=== PATIENT | male | born 1960 | race Caucasian/White ===

== ENCOUNTER 2018-10-30 09:05 | Day surgery (SDC) | payer OTHER ==
[~2018-10-30 09:05] MED LIST: Lactated Ringers 1,000 ML IV SCH; Sodium Chloride 0.9% 10 ML SDV IV PRN; Sodium Chloride 0.9% 10 ML Syringe FLUSH PRN; Sodium Chloride 0.9% 2.5 ML Syringe FLUSH PRN
[2018-10-30] MEDS ORDERED: Propofol 200 MG/20 ML SDV ONE (09:24)
[2018-10-30] MEDS ORDERED: fentaNYL 100 MCG/2 ML SDV ONE (09:24)
[2018-10-30] MEDS ORDERED: Lidocaine 2% 5 ML SDV ONE (09:24)
--- NOTE | 2018-10-30 10:26 | PCM.PREANE ---
Preanesthetic Assessment - Anesthesia/Transfusion/Family Hx Anesthesia History: Prior Anesthesia Without Reaction Family History of Anesthesia Reaction: No Transfusion History: No Prior Transfusion(s) - Review of Systems General: No Symptoms Pulmonary: Other (has LYNDA, non compliant because of nasal stuffiness/obstruction ) Cardiovascular: No Symptoms Gastrointestinal: No Symptoms Neurological: No Symptoms Other: Reports: None - Physical Assessment NPO Status Date: 10/29/18 O2 Sat by Pulse Oximetry: 94 Respiratory Rate: 14 Vital Signs: Last Vital Signs Temp 97.7 F 10/30/18 09:35 Pulse 65 10/30/18 09:35 Resp 14 10/30/18 09:35 BP 121/70 10/30/18 09:35 Pulse Ox 94 L 10/30/18 09:35 Height: 6 ft Weight: 131.542 kg ASA Class: 3 Mental Status: Alert & Oriented x3 Airway Class: Mallampati = 2 Dentition: Reports: Normal Dentition ROM/Head Extension: Full Lungs: Clear to Auscultation, Normal Respiratory Effort Cardiovascular: Regular Rate, Regular Rhythm - Allergies Allergies/Adverse Reactions: Allergies Allergy/AdvReac Type Severity Reaction Status Date / Time No Known Allergies Allergy Verified 10/24/18 09:03 - Blood Blood Available: No - Anesthesia Plan Pre-Op Medication Ordered: None - Acknowledgements Anesthesia Type Planned: General Anesthesia Pt an Appropriate Candidate for the Planned Anesthesia: Yes Alternatives and Risks of Anesthesia Discussed w Pt/Guardian: Yes Pt/Guardian Understands and Agrees with Anesthesia Plan: Yes Additional Comments: PMH: htn, LYNDA, BPH, nasal obstruction PLAN: tiva, extended observation in PACU PreAnesthesia Questionnaire HEENT History: Reports: Other (See Below) Other HEENT History: wears glasses Cardiovascular History: Reports: Hypertension Respiratory History: Reports: Sleep Apnea Other Respiratory History: uses CPAP Gastrointestinal History: Reports: GERD Genitourinary History: Reports: BPH Musculoskeletal History: Reports: Fracture Neurological History: Reports: None Psychiatric History: Reports: Anxiety, Depression Endocrine/Metabolic History: Reports: Obesity/BMI 30+ Hematologic History: Reports: None Immunologic History: Reports: None Oncologic (Cancer) History: Reports: None Dermatologic History: Reports: None - Past Surgical History Head Surgeries/Procedures: Reports: None HEENT Surgical History: Reports: None Cardiovascular Surgical History: Reports: None Respiratory Surgical History: Reports: None GI Surgical History: Reports: Hernia, Inguinal Male Surgical History: Reports: None Endocrine Surgical History: Reports: None Neurological Surgical History: Reports: None Musculoskeletal Surgical History: Reports: Other (See Below) Other Musculoskeletal Surgeries/Procedures:: surgical repair of fx elbow Oncologic Surgical History: Reports: None Dermatological Surgical History: Reports: None - SUBSTANCE USE Smoking Status *Q: Former Smoker Recreational Drug Use History: No - HOME MEDS Home Medications: Home Meds Losartan [Cozaar] 50 mg PO DAILY 10/18/14 [History] buPROPion [buPROPion XL] 150 mg PO DAILY 10/18/14 [History] ALPRAZolam [Alprazolam] 0.5 - 1 tab PO TID PRN 10/24/18 [History] Finasteride 5 mg PO DAILY 10/24/18 [History] Meloxicam 1 tab PO DAILY 10/24/18 [History] Nicotine Polacrilex [Nicorette] 1 piece gum CHEW ASDIRECTED PRN 10/24/18 [ History] Omeprazole 40 mg PO DAILY 10/24/18 [History] Tamsulosin HCl 0.4 mg PO DAILY 10/24/18 [History] - CURRENT (IN HOUSE) MEDS Current Meds: Current Medications Lactated Ringer's (Ringers, Lactated) 1,000 mls @ 125 mls/hr IV ASDIRECTED RICARDA Last Admin: 10/30/18 09:55 Dose: 125 mls/hr Sodium Chloride (Saline Flush) 10 ml FLUSH ASDIRECTED PRN PRN Reason: Keep Vein Open Sodium Chloride (Saline Flush) 2.5 ml FLUSH ASDIRECTED PRN PRN Reason: Keep Vein Open Sodium Chloride (Saline Flush) 10 ml FLUSH ASDIRECTED PRN PRN Reason: Keep Vein Open Sodium Chloride (Saline Flush) 2.5 ml FLUSH ASDIRECTED PRN PRN Reason: Keep Vein Open Sodium Chloride (Normal Saline) 10 ml IV ASDIRECTED PRN PRN Reason: IV Use Discontinued Medications Fentanyl (Sublimaze) Confirm Administered Dose 100 mcg .ROUTE .STK-MED ONE Stop: 10/30/18 09:25 Lidocaine (Xylocaine-Mpf 2%) Confirm Administered Dose 5 ml .ROUTE .STK-MED ONE Stop: 10/30/18 09:25 Propofol (Diprivan 20 Ml) Confirm Administered Dose 400 mg .ROUTE .STFOLUP-MED ONE Stop: 10/30/18 09:25
--- NOTE | 2018-10-30 10:48 | PCM.OPNOTE ---
- General Post-Op/Procedure Note Date of Surgery/Procedure: 10/30/18 Operative Procedure(s): Colonoscopy Findings: Diverticulosis, rectal polyp Pre Op Diagnosis: Colonoscopy Post-Op Diagnosis: diverticuluosis, rectal polyp Anesthesia Technique: MICHAEL Primary Surgeon: Belkys Felipe Condition: Good
[2018-10-30 11:17] VITALS: BP 102/68
--- NOTE | 2018-10-30 12:30 | OR ---
SURGEON: BELKYS FELIPE MD DATE OF PROCEDURE: 10/30/2018 PREOPERATIVE DIAGNOSIS: Screening colonoscopy. POSTOPERATIVE DIAGNOSES: 1. Diverticulosis. 2. Rectal polyp. 3. Grade 4 hemorrhoid. PROCEDURE PERFORMED: Screening colonoscopy with biopsy. PRIMARY SURGEON: Belkys Felipe MD. ANESTHESIA: MAC. INSTRUMENT USED: Olympus colonoscope. EXTENT OF EXAM: To the cecum. PREPARATION: Good. LIMITATIONS: None. INDICATION FOR EXAMINATION: The patient is a 58-year-old male who presents for screening colonoscopy. I explained the procedure, expected perioperative course, and risks including bleeding, infection, or damage to surrounding structures including perforation. The patient verbalized understanding and wishes to proceed. PROCEDURE IN DETAIL: The patient was brought into the endoscopy suite and placed in a left lateral decubitus position. A time-out was completed verifying the patient's name, age, date of , allergies, and procedure to be performed. Monitored anesthesia care was induced and continuous oxygen was provided via nasal cannula throughout the procedure. After adequate sedation was achieved, a digital rectal exam was performed. The patient was found to have a large grade 4 hemorrhoid in the left lateral position. A well lubricated colonoscope was inserted into the rectum and advanced under direct visualization to the level of the cecum. The cecum was identified by both visual and anatomic landmarks. A photograph was taken of the cecal cap as well with the scope retroflexed within the cecum. The scope was then fully withdrawn while examining the color, texture, anatomy, and integrity of the mucosa from the cecum to the anal canal. The patient was found to have diverticulosis throughout the sigmoid colon. In the proximal rectum, there was a small 2 to 3 mm polyp. This was removed using a cold biopsy forceps and sent to Pathology, labeled as rectal polyp. The scope was then retroflexed within the rectum to allow visualization of the anal canal opening. This grossly appeared normal and a photograph was taken. Scope was straightened out and fully withdrawn. The cecum to anus time was 7 minutes. The patient tolerated the procedure well and was taken to PACU in stable condition. ENDOSCOPIC DIAGNOSES: 1. Diverticulosis. 2. Rectal polyp. 3. Grade 4 hemorrhoid. RECOMMENDATIONS: Follow up in clinic in 2 weeks. JOSHUA FALCON /[id number]
== END 2018-10-30 12:00 | disposition home or self-care (01) ==
LOC: MW.SDS 09:05
PROVIDERS: ATTEND Surgery
DX: Z12.11 Encounter for screening for malignant neoplasm of colon (principal); K57.30 Diverticulosis of large intestine without perforation or abscess without bleeding; K62.1 Rectal polyp; K64.3 Fourth degree hemorrhoids; F41.8 Other specified anxiety disorders; I10 Essential (primary) hypertension; G47.33 Obstructive sleep apnea (adult) (pediatric); N40.0 Benign prostatic hyperplasia without lower urinary tract symptoms; E66.9 Obesity, unspecified; Z68.41 Body mass index [BMI] 40.0-44.9, adult; Z87.891 Personal history of nicotine dependence; Z79.899 Other long term (current) drug therapy
CPT/HCPCS: 45380; 88305; J2001; J2704; J3010; J7120

== ENCOUNTER 2019-03-27 17:02 | Emergency (ER) | payer OTHER ==
[2019-03-27 17:14] VITALS: BP 150/98; PULSE 103
--- NOTE | 2019-03-27 17:21 | EDM.PDOC ---
ED HPI GENERAL MEDICAL PROBLEM - General Chief Complaint: Genitourinary Problem Stated Complaint: PROSTATE Time Seen by Provider: 03/27/19 17:21 Source of Information: Reports: Patient History Limitations: Reports: No Limitations - History of Present Illness INITIAL COMMENTS - FREE TEXT/NARRATIVE: HISTORY AND PHYSICAL: History of present illness: Patient is a 58-year-old male presents to the ED with complaint of dysuria and frequent urination. Patient has a history of BPH, sees Dr. Cortez. He states he has been having frequent urination for the past few weeks but has been worse in the past 2 days. He states he has some burning with urination and some suprapubic abdominal pain. He denies fevers, chills, nausea, vomiting, back pain , hematuria. Review of systems: As per history of present illness and below otherwise all systems reviewed and negative. Past medical history: As per history of present illness and as reviewed below otherwise noncontributory. Surgical history: As per history of present illness and as reviewed below otherwise noncontributory. Social history: No reported history of drug or alcohol abuse. Family history: As per history of present illness and as reviewed below otherwise noncontributory. Physical exam: General: Patient sitting comfortably in no acute distress and nontoxic appearing HEENT: Atraumatic, normocephalic, pupils reactive, negative for conjunctival pallor or scleral icterus, mucous membranes moist, throat clear, neck supple, nontender, trachea midline. No meningeal signs. Lungs: Clear to auscultation, breath sounds equal bilaterally, chest nontender. Heart: S1S2, regular, negative for clicks, rubs, or overt murmur. Abdomen: Soft, nondistended, nontender. Negative for masses or hepatosplenomegaly. Negative for costovertebral tenderness. No rigidity, rebound , guarding. Pelvis: Stable nontender. Genitourinary: declined prostate exam Rectal: Deferred. Extremities: Atraumatic, negative for cords or calf pain. Neurovascular unremarkable. Neuro: Awake, alert, oriented. Cranial nerves II through XII unremarkable. Cerebellum unremarkable. Motor and sensory unremarkable throughout. Exam nonfocal. Notes: Diagnostics: [employer]: [] Prescriptions: cipro Impression: Dysuria, prostatitis Plan: Take antibiotic as instructed Follow up with urology Return to ED as needed as discussed Definitive disposition and diagnosis as appropriate pending reevaluation and review of above. Pelvic Pain Score (Numeric/FACES): 8 - Related Data Allergies Allergy/AdvReac Type Severity Reaction Status Date / Time No Known Allergies Allergy Verified 03/27/19 17:15 Home Meds: Home Meds Losartan [Cozaar] 50 mg PO DAILY 10/18/14 [History] buPROPion [buPROPion XL] 150 mg PO DAILY 10/18/14 [History] ALPRAZolam [Alprazolam] 0.5 - 1 tab PO TID PRN 10/24/18 [History] Finasteride 5 mg PO DAILY 10/24/18 [History] Meloxicam 1 tab PO DAILY 10/24/18 [History] Nicotine Polacrilex [Nicorette] 1 piece gum CHEW ASDIRECTED PRN 10/24/18 [ History] Tamsulosin HCl 0.4 mg PO DAILY 10/24/18 [History] Ciprofloxacin HCl [Cipro] 500 mg PO BID 14 Days #28 tablet 03/27/19 [Rx] Past Medical History HEENT History: Reports: Other (See Below) Other HEENT History: wears glasses Cardiovascular History: Reports: Hypertension Respiratory History: Reports: Sleep Apnea Other Respiratory History: uses CPAP Gastrointestinal History: Reports: GERD Genitourinary History: Reports: BPH Musculoskeletal History: Reports: Fracture Neurological History: Reports: None Psychiatric History: Reports: Anxiety, Depression Endocrine/Metabolic History: Reports: Obesity/BMI 30+ Hematologic History: Reports: None Immunologic History: Reports: None Oncologic (Cancer) History: Reports: None Dermatologic History: Reports: None - Infectious Disease History Infectious Disease History: Reports: Chicken Pox, Measles, Mumps - Past Surgical History Head Surgeries/Procedures: Reports: None HEENT Surgical History: Reports: None Respiratory Surgical History: Reports: None GI Surgical History: Reports: Hernia, Inguinal Male Surgical History: Reports: None Endocrine Surgical History: Reports: None Neurological Surgical History: Reports: None Musculoskeletal Surgical History: Reports: Other (See Below) Other Musculoskeletal Surgeries/Procedures:: surgical repair of fx elbow Oncologic Surgical History: Reports: None Dermatological Surgical History: Reports: None Social & Family History - Family History Family Medical History: Noncontributory - Tobacco Use Smoking Status *Q: Former Smoker Used Tobacco, but Quit: Yes Month/Year Tobacco Last Used: 10 years - Recreational Drug Use Recreational Drug Use: No ED ROS GENERAL - Review of Systems Review Of Systems: ROS reveals no pertinent complaints other than HPI. ED EXAM, RENAL/ - Physical Exam Exam: See Below (see dictation) Course - Vital Signs Last Recorded V/S: Last Vital Signs Temp 97.3 F 03/27/19 17:09 Pulse 103 H 03/27/19 17:09 Resp 18 03/27/19 17:09 BP 150/98 H 03/27/19 17:09 Pulse Ox 94 L 03/27/19 17:09 - Orders/Labs/Meds Labs: Laboratory Tests 03/27/19 Range/Units 17:20 Urine Color YELLOW Urine Appearance CLEAR Urine pH 7.0 (5.0-8.0) Ur Specific [place] 1.015 (1.001-1.035) Urine Protein NEGATIVE (NEGATIVE) mg/dL Urine Glucose (UA) NEGATIVE (NEGATIVE) mg/dL Urine Ketones NEGATIVE (NEGATIVE) mg/dL Urine Occult Blood NEGATIVE (NEGATIVE) Urine Nitrite NEGATIVE (NEGATIVE) Urine Bilirubin NEGATIVE (NEGATIVE) Urine Urobilinogen 0.2 (<2.0) EU/dL Ur Leukocyte Esterase NEGATIVE (NEGATIVE) Departure - Departure Time of Disposition: 17:44 Disposition: Home, Self-Care 01 Condition: Good Clinical Impression: Prostatitis - Discharge Information Prescriptions: Ciprofloxacin HCl [Cipro] 500 mg PO BID 14 Days #28 tablet Instructions: Prostatitis, [id number] Referrals: Louis Cortez MD [Primary Care Provider] - Forms: ED Department Discharge Additional Instructions: The following information is given to patients seen in the emergency department who are being discharged to home. This information is to outline your options for follow-up care. We provide all patients seen in our emergency department with a follow-up referral. The need for follow-up, as well as the timing and circumstances, are variable depending upon the specifics of your emergency department visit. If you don't have a primary care physician on staff, we will provide you with a referral. We always advise you to contact your personal physician following an emergency department visit to inform them of the circumstance of the visit and for follow-up with them and/or the need for any referrals to a consulting specialist. The emergency department will also refer you to a specialist when appropriate. This referral assures that you have the opportunity for follow-up care with a specialist. All of these measure are taken in an effort to provide you with optimal care, which includes your follow-up. Under all circumstances we always encourage you to contact your private physician who remains a resource for coordinating your care. When calling for follow-up care, please make the office aware that this follow-up is from your recent emergency room visit. If for any reason you are refused follow-up, please contact the [facility] Emergency Department at and asked to speak to the emergency department charge nurse. [facility] [address] [place] [id number] [address] Take antibiotic as instructed Follow up with urology Return to ED as needed as discussed
== END 2019-03-27 17:56 | disposition home or self-care (01) ==
LOC: MW.ED 17:02
DX: N41.9 Inflammatory disease of prostate, unspecified (principal); I10 Essential (primary) hypertension; G47.30 Sleep apnea, unspecified; F32.9 Major depressive disorder, single episode, unspecified; F41.9 Anxiety disorder, unspecified; N40.0 Benign prostatic hyperplasia without lower urinary tract symptoms; E66.9 Obesity, unspecified; Z68.38 Body mass index [BMI] 38.0-38.9, adult; Z87.891 Personal history of nicotine dependence; Z79.899 Other long term (current) drug therapy
CPT/HCPCS: 81003; 99283

== ENCOUNTER 2019-04-10 06:40 | Observation (INO) | payer OTHER ==
[~2019-04-10 06:40] MED LIST changes: -Lactated Ringers 1,000 ML IV SCH
[2019-04-10] MEDS: Lactated Ringers 1,000 ML IV SCH ×3 (07:25→23:50)
[2019-04-10] MEDS ORDERED: Ondansetron 4 MG/2 ML SDV ONE (07:29)
[2019-04-10] MEDS ORDERED: Propofol 200 MG/20 ML SDV ONE ×2 (07:29→09:10)
[2019-04-10] MEDS ORDERED: Midazolam 1 MG/ML 2 ML SDV ONE (07:29)
[2019-04-10] MEDS ORDERED: fentaNYL 100 MCG/2 ML SDV ONE (07:29)
[2019-04-10] MEDS ORDERED: ceFAZolin 1 GM Vial ONE (07:45)
[2019-04-10] MEDS ORDERED: Sodium Chloride 0.9% 20 ML ONE (07:45)
--- NOTE | 2019-04-10 08:02 | PCM.PREANE ---
Preanesthetic Assessment - Anesthesia/Transfusion/Family Hx Anesthesia History: Prior Anesthesia Without Reaction Family History of Anesthesia Reaction: No Transfusion History: No Prior Transfusion(s) - Review of Systems General: No Symptoms Pulmonary: Other Cardiovascular: No Symptoms (has not used his CPAP x 1 yr, chronic nasal obstruction. does not know the severity of his LYNDA- study done in [facility] 4 yrs ago, ) Gastrointestinal: No Symptoms Neurological: No Symptoms - Physical Assessment NPO Status Date: 04/09/19 NPO Status Time: 23:00 Vital Signs: Last Vital Signs Temp 97.0 F 04/10/19 06:50 Pulse 71 04/10/19 06:50 Resp 18 04/10/19 06:50 BP 123/74 04/10/19 06:50 Pulse Ox 94 L 04/10/19 06:50 Height: 6 ft Weight: 127.459 kg ASA Class: 4 Mental Status: Alert & Oriented x3 Airway Class: Mallampati = 3 Dentition: Reports: Normal Dentition ROM/Head Extension: Full Lungs: Clear to Auscultation, Normal Respiratory Effort Cardiovascular: Regular Rate, Regular Rhythm - Allergies Allergies/Adverse Reactions: Allergies Allergy/AdvReac Type Severity Reaction Status Date / Time No Known Allergies Allergy Verified 04/05/19 13:06 - Blood Blood Available: No - Anesthesia Plan Pre-Op Medication Ordered: None - Acknowledgements Anesthesia Type Planned: Spinal Pt an Appropriate Candidate for the Planned Anesthesia: Yes Alternatives and Risks of Anesthesia Discussed w Pt/Guardian: Yes Pt/Guardian Understands and Agrees with Anesthesia Plan: Yes Additional Comments: anes prob list: uncontrolled LYNDA, htn, obesity, PLAN: spinal, diprivan sedation, no benzos, continuous spo2 and capnography central monitoring x 48 hr while an inpt, after discharge- no narcotics, no use of his xanax, no alcohol. LYNDA inst sheet given to . Offered the pt the option to delay surg, have new mask filling and a week of use preoperatively. Pt wants surgery today and accepts the increased risks of resp obst, aarrythmia and possible with the increased risk extending to the 7th post op day PreAnesthesia Questionnaire HEENT History: Reports: Other (See Below) Other HEENT History: wears glasses Cardiovascular History: Reports: Hypertension Respiratory History: Reports: Sleep Apnea Other Respiratory History: uses CPAP Gastrointestinal History: Reports: None Genitourinary History: Reports: BPH Musculoskeletal History: Reports: Back Pain, Chronic, Fracture Other Musculoskeletal History: fx to rt arm Neurological History: Reports: None Psychiatric History: Reports: Anxiety, Depression Endocrine/Metabolic History: Reports: Obesity/BMI 30+ Hematologic History: Reports: None Immunologic History: Reports: None Oncologic (Cancer) History: Reports: None Dermatologic History: Reports: None - Infectious Disease History Infectious Disease History: Reports: Chicken Pox, Measles, Mumps - Past Surgical History Head Surgeries/Procedures: Reports: None HEENT Surgical History: Reports: Naso-Sinus Surgery, Tonsillectomy Cardiovascular Surgical History: Reports: None Respiratory Surgical History: Reports: None GI Surgical History: Reports: Hernia, Inguinal Male Surgical History: Reports: None Endocrine Surgical History: Reports: None Neurological Surgical History: Reports: None Musculoskeletal Surgical History: Reports: Other (See Below) Other Musculoskeletal Surgeries/Procedures:: surgical repair of fx elbow and wrist Oncologic Surgical History: Reports: None Dermatological Surgical History: Reports: None - SUBSTANCE USE Smoking Status *Q: Former Smoker Tobacco Use Within Last Twelve Months: No Recreational Drug Use History: No - HOME MEDS Home Medications: Home Meds Losartan [Cozaar] 50 mg PO DAILY 10/18/14 [History] buPROPion [buPROPion XL] 150 mg PO DAILY 10/18/14 [History] ALPRAZolam [Alprazolam] 1 tab PO BEDTIME PRN 10/24/18 [History] Finasteride 5 mg PO DAILY 10/24/18 [History] Meloxicam 15 mg PO DAILY 10/24/18 [History] Tamsulosin HCl 0.4 mg PO DAILY 10/24/18 [History] - CURRENT (IN HOUSE) MEDS Current Meds: Current Medications Cefazolin Sodium/Dextrose 2 gm (/ Premix) 50 mls @ 100 mls/hr IV Q6H RICARDA Lactated Ringer's (Ringers, Lactated) 1,000 mls @ 150 mls/hr IV ASDIRECTED RICARDA Last Admin: 04/10/19 07:25 Dose: 150 mls/hr Sodium Chloride (Saline Flush) 10 ml FLUSH ASDIRECTED PRN PRN Reason: Keep Vein Open Sodium Chloride (Saline Flush) 2.5 ml FLUSH ASDIRECTED PRN PRN Reason: Keep Vein Open Sodium Chloride (Normal Saline) 10 ml IV ASDIRECTED PRN PRN Reason: IV Use Discontinued Medications Cefazolin Sodium (Ancef) Confirm Administered Dose 2 gm .ROUTE .STK-MED ONE Stop: 04/10/19 07:46 Fentanyl (Sublimaze) Confirm Administered Dose 100 mcg .ROUTE .STK-MED ONE Stop: 04/10/19 07:30 Sodium Chloride (Normal Saline) Confirm Administered Dose 20 mls @ as directed .ROUTE .STK-MED ONE Stop: 04/10/19 07:46 Midazolam HCl (Versed 1 Mg/Ml) Confirm Administered Dose 2 mg .ROUTE .STK-MED ONE Stop: 04/10/19 07:30 Ondansetron HCl (Zofran) Confirm Administered Dose 4 mg .ROUTE .STK-MED ONE Stop: 04/10/19 07:30 Propofol (Diprivan 20 Ml) Confirm Administered Dose 200 mg .ROUTE .STK-MED ONE Stop: 04/10/19 07:30
[2019-04-10] MEDS ORDERED: ePHEDrine 50 MG/ML SDV ONE (08:26)
[2019-04-10] MEDS ORDERED: Belladonna Alkaloids/Opium 16.2-30 MG Supp RECTAL PRN (09:28)
[2019-04-10] MEDS ORDERED: D5 1/2 NS w/ 20 mEq/L KCl 1,000 ML IV SCH (09:30)
--- NOTE | 2019-04-10 10:04 | PCM.POSTAN ---
POST ANESTHESIA ASSESSMENT - MENTAL STATUS Mental Status: Alert, Oriented - VITAL SIGNS Vital Signs: Last Vital Signs Temp 96.8 F 04/10/19 09:31 Pulse 48 L 04/10/19 09:56 Resp 12 04/10/19 09:56 BP 97/59 L 04/10/19 09:56 Pulse Ox 95 04/10/19 09:56 - RESPIRATORY Respiratory Status: Respiratory Rate WNL, Airway Patent, O2 Saturation Stable - CARDIOVASCULAR CV Status: Pulse Rate WNL (55, with normal blood pressure), Blood Pressure Stable - GASTROINTESTINAL GI Status: No Symptoms - POST OP HYDRATION Hydration Status: Adequate & Stable - OBSERVATIONS Free Text/Narrative:: spinal- still has lower extremity motor block. OK for transfer to floor with continuous spo2 and etco2 monitoring untill discharge.
[2019-04-10 10:38] LABS: POTASSIUM,K 4.7 mmol/L (3.5-5.1)
--- NOTE | 2019-04-10 10:51 | OR ---
SURGEON: Louis Cortez M.D. DATE OF PROCEDURE: 04/10/2019 PREOPERATIVE DIAGNOSIS: BPH with obstruction. POSTOPERATIVE DIAGNOSIS: BPH with obstruction. OPERATION: Transurethral resection of the prostate. DESCRIPTION OF PROCEDURE: The patient was given spinal anesthesia. He was placed in dorsal lithotomy position, prepped and draped in sterile drapes. The 28-Danish resectoscope was introduced in the bladder without difficulty. The prostate was resected in the usual manner, starting with the floor, going on laterally and anteriorly, resecting the large median lobe that we had. At the end, all prostatic chips were removed. All bleeding points were fulgurated. A 22 three-way Espino catheter with 60 mL in the balloon was left in the bladder, connected to TUR drip. Estimated blood loss 200 mL. The patient tolerated the procedure well and was moved to recovery room in good condition. HUDSON / TERRIE /[id number]
[2019-04-10] MEDS: ceFAZolin 2 GM in Premix Bag 1 BAG IV SCH ×3 (12:36→18:54)
[2019-04-10] MEDS: Bacitracin Oint 28.35 GM Tube TOP SCH ×2 (14:31→21:33)
[2019-04-10] MEDS: Docusate Sodium 100 MG Cap PO SCH (20:23)
[2019-04-11] MEDS: ceFAZolin 2 GM in Premix Bag 1 BAG IV SCH ×4 (00:42→17:11)
[2019-04-11] MEDS: Bacitracin Oint 28.35 GM Tube TOP SCH ×3 (06:02→22:38)
[2019-04-11] MEDS: Meloxicam 7.5 MG Tab PO SCH (08:32)
[2019-04-11] MEDS: Losartan 50 MG Tab PO SCH (08:33)
[2019-04-11] MEDS: Docusate Sodium 100 MG Cap PO SCH ×2 (08:33→20:45)
[2019-04-11] MEDS: Lactated Ringers 1,000 ML IV SCH (08:35)
[2019-04-11] MEDS ORDERED: Acetaminophen 325 MG Tab PO PRN (11:45)
--- NOTE | 2019-04-11 12:19 | PN ---
This is postop day 1. He is doing well. He is afebrile. The urine is clear. The irrigation is still running, will be stopped today. His vital signs are normal. His hemoglobin yesterday was 14.9 postop. Sodium and potassium were both normal. PLAN: We will discontinue IV fluid and irrigation today, discontinue the Espino catheter tomorrow, and we will most likely send him home tomorrow. HUDSON / TERRIE /[id number]
[2019-04-11] MEDS ORDERED: Ketorolac 30 MG/ML SDV IVPUSH PRN (15:13)
[2019-04-12] MEDS: ceFAZolin 2 GM in Premix Bag 1 BAG IV SCH ×2 (00:30→06:34)
[2019-04-12 04:46] VITALS: PULSE 58
[2019-04-12] MEDS: Bacitracin Oint 28.35 GM Tube TOP SCH (06:34)
[2019-04-12 07:35] VITALS: BP 129/65
[2019-04-12] MEDS: Meloxicam 7.5 MG Tab PO SCH (08:00)
[2019-04-12] MEDS: Losartan 50 MG Tab PO SCH (08:00)
[2019-04-12] MEDS: Docusate Sodium 100 MG Cap PO SCH (08:00)
--- NOTE | 2019-04-12 13:11 | DISCH ---
DATE OF DISCHARGE: 04/12/2019 PRIMARY CARE PHYSICIAN: Lilly Lozano A 58-year-old. He had significant obstructive urinary symptoms and enlarged prostate. He was admitted to the hospital, had a TURP done on April 10. Postoperatively, he did well, remained stable. Pathology on the removed prostate showed 35 g of benign prostate tissue. His adenoma originally measured approximately 40 g. At the time of discharge, he was passing his urine without difficulty. The urine is clear. He is to come back as needed. HUDSON FALCON /[id number]
== END 2019-04-12 11:14 | disposition home or self-care (01) ==
LOC: MW.SDS 06:40 → MW.MS 10:04
PROVIDERS: ADMIT Urology; ATTEND Urology
DX: N40.1 Benign prostatic hyperplasia with lower urinary tract symptoms (principal); I10 Essential (primary) hypertension; F41.8 Other specified anxiety disorders; G47.33 Obstructive sleep apnea (adult) (pediatric); E66.9 Obesity, unspecified; Z79.899 Other long term (current) drug therapy; Z87.891 Personal history of nicotine dependence; Z99.89 Dependence on other enabling machines and devices; Z68.38 Body mass index [BMI] 38.0-38.9, adult
CPT/HCPCS: 36415; 52601; 84132; 84295; 85018; 88305; A9270; C1769; J0690; J2405; J2704; J3010; J7120; G0378; J2250

== ENCOUNTER 2020-01-13 20:36 | Emergency (ER) | payer OTHER ==
--- NOTE | 2020-01-13 20:50 | EDM.PDOC ---
ED HPI GENERAL MEDICAL PROBLEM - General Chief Complaint: ENT Problem Stated Complaint: RUNNY NOSE SORE THROAT FEVER Time Seen by Provider: 01/13/20 20:37 Source of Information: Reports: Patient History Limitations: Reports: No Limitations - History of Present Illness INITIAL COMMENTS - FREE TEXT/NARRATIVE: HISTORY AND PHYSICAL: History of present illness: Patient is a 59-year-old male who presents to the emergency room with complaints of subjective fever, sore throat and runny nose x2 days. Today he was seen at the clinic and tested for COVID-19. This is a send out, will receive results by the end of the week. He was also given a prescription for Flonase nasal spray, but failed to pick this medication up. He states none of his family members have been ill and he has not been directly exposed to anyone who is been ill. Patient denies any headache, change in vision, syncope or near syncope. Denies any chest pain, back pain, shortness of breath or cough. Denies any abdominal pain, nausea, vomiting, diarrhea, constipation or dysuria. Has not noted any blood in urine or stool. Patient has been eating and drinking appropriately. He has not taken any [id number] medication. Review of systems: As per history of present illness and below otherwise all systems reviewed and negative. Past medical history: As per history of present illness and as reviewed below otherwise noncontributory. Surgical history: As per history of present illness and as reviewed below otherwise noncontributory. Social history: See social history for further information Family history: As per history of present illness and as reviewed below otherwise noncontributory. Physical exam: General: Well-developed and well-nourished 59-year-old male. Alert and oriented. Nontoxic-appearing and in no acute distress. HEENT: Atraumatic, normocephalic, pupils equal and reactive bilaterally, negative for conjunctival pallor or scleral icterus, mucous membranes moist, TMs normal bilaterally, throat clear, cobblestoning, neck supple, nontender, trachea midline. No drooling or trismus noted. No meningeal signs. No hot potato voice noted. Lungs: Clear to auscultation, breath sounds equal bilaterally, chest nontender. Heart: S1S2, regular rate and rhythm without overt murmur Abdomen: Soft, nondistended, nontender. Skin: Intact, warm, dry. No lesions or rashes noted. Hematologic: No petechiae or purpra. Mucosa appropriate color and normal nail bed color and refill. Extremities: Atraumatic, moves all extremities per self without difficulty or deficits, negative for cords or calf pain. Neurovascular unremarkable. Neuro: Awake, alert, oriented. Cranial nerves II through XII unremarkable. Cerebellum unremarkable. Motor and sensory unremarkable throughout. Exam nonfo nathaniel. Notes: Patient strep screening is negative. We discussed [id number] products he can take for symptomatic relief. I did encourage him to call his primary care provider tomorrow, Maura Napier, to set up an appointment. We also reviewed signs and symptoms that would prompt him to return to the emergency room. Requests a one time dose of something for throat pain, so he can sleep tonite. Supportive care measures were reviewed and discussed. Voices understanding and is agreeable to plan of care. Denies any further questions or concerns at this time. Diagnostics: Strep screen Therapeutics: Phenergan w/ cod. (10ml) Prescription: None Impression: Viral illness Plan: 1. Please order picker your nasal spray and take as directed. You can also use [id number] cough and cold allergy medication for your runny nose and sore throat. If your symptoms should worsen, new symptoms develop or any of the signs and symptoms we discussed should arise please return to the emergency room or call 911 (if needed). 2. The clinic should contact you with your coronavirus results. 3. Alternate Tylenol and ibuprofen for fever and pain control. Small frequent sips of fluids to prevent dehydration. 4. Follow-up with your primary care provider Maura Lozano as we discussed. Definitive disposition and diagnosis as appropriate pending reevaluation and review of above. throat Pain Score (Numeric/FACES): 8 - Related Data Allergies Allergy/AdvReac Type Severity Reaction Status Date / Time No Known Allergies Allergy Verified 01/13/20 20:52 Home Meds: Home Meds Celecoxib 200 mg PO DAILY 01/13/20 [History] LORazepam [Lorazepam] 1 mg PO ASDIRECTED PRN 01/13/20 [History] Losartan Potassium 50 mg PO DAILY 01/13/20 [History] Omeprazole 40 mg PO DAILY 01/13/20 [History] buPROPion HCL [Bupropion Xl] 300 mg PO DAILY 01/13/20 [History] Past Medical History HEENT History: Reports: Other (See Below) Other HEENT History: wears glasses Cardiovascular History: Reports: Hypertension Respiratory History: Reports: Sleep Apnea Other Respiratory History: uses CPAP Gastrointestinal History: Reports: None Genitourinary History: Reports: BPH Musculoskeletal History: Reports: Back Pain, Chronic, Fracture Other Musculoskeletal History: fx to rt arm Neurological History: Reports: None Psychiatric History: Reports: Anxiety, Depression Endocrine/Metabolic History: Reports: Obesity/BMI 30+ Hematologic History: Reports: None Immunologic History: Reports: None Oncologic (Cancer) History: Reports: None Dermatologic History: Reports: None - Infectious Disease History Infectious Disease History: Reports: Chicken Pox, Measles, Mumps - Past Surgical History Head Surgeries/Procedures: Reports: None HEENT Surgical History: Reports: Naso-Sinus Surgery, Tonsillectomy Cardiovascular Surgical History: Reports: None Respiratory Surgical History: Reports: None GI Surgical History: Reports: Hernia, Inguinal Male Surgical History: Reports: None Endocrine Surgical History: Reports: None Neurological Surgical History: Reports: None Musculoskeletal Surgical History: Reports: Other (See Below) Other Musculoskeletal Surgeries/Procedures:: surgical repair of fx elbow and wrist Oncologic Surgical History: Reports: None Dermatological Surgical History: Reports: None Social & Family History - Family History Family Medical History: Noncontributory ED ROS ENT - Review of Systems Review Of Systems: Comprehensive ROS is negative, except as noted in HPI. ED EXAM, ENT - Physical Exam Exam: See Below (See dictation) Course - Vital Signs Last Recorded V/S: Last Vital Signs Temp 97.8 F 01/13/20 20:49 Pulse 102 H 01/13/20 20:49 Resp 18 01/13/20 20:49 BP 113/82 01/13/20 20:49 Pulse Ox 97 01/13/20 20:49 - Orders/Labs/Meds Orders: Active Orders 24 hr Category Date Time Status CULTURE STREP A CONFIRMATION [] Stat Lab 01/13/20 20:59 Results STREP SCRN A RAPID W CULT CONF [] Stat Lab 01/13/20 20:59 Results Codeine/Promethazine [Phenergan with Codeine] Med 01/13/20 21:22 Stat 10 ml PO NOW STA Meds: Medications Discontinued Medications Generic Name Dose Route Start Last Admin Trade Name Freq PRN Reason Stop Dose Admin Montelukast Sodium 10 mg 08/10/20 21:20 Singulair PO 01/13/20 21:21 ONETIME ONE Departure - Departure Time of Disposition: 21:24 Disposition: Home, Self-Care 01 Clinical Impression: Viral illness - Discharge Information Instructions: Viral Illness, Adult Referrals: Lilly Lozano NP [Primary Care Provider] - Forms: ED Department Discharge Additional Instructions: The following information is given to patients seen in the emergency department who are being discharged to home. This information is to outline your options for follow-up care. We provide all patients seen in our emergency department with a follow-up referral. The need for follow-up, as well as the timing and circumstances, are variable depending upon the specifics of your emergency department visit. If you don't have a primary care physician on staff, we will provide you with a referral. We always advise you to contact your personal physician following an emergency department visit to inform them of the circumstance of the visit and for follow-up with them and/or the need for any referrals to a consulting specialist. The emergency department will also refer you to a specialist when appropriate. This referral assures that you have the opportunity for follow-up care with a specialist. All of these measure are taken in an effort to provide you with optimal care, which includes your follow-up. Under all circumstances we always encourage you to contact your private physician who remains a resource for coordinating your care. When calling for follow-up care, please make the office aware that this follow-up is from your recent emergency room visit. If for any reason you are refused follow-up, please contact the [facility] Emergency Department at and asked to speak to the emergency department charge nurse. [facility] [address] [place] [id number] [address] Thank you for choosing the [facility] emergency department in [place] for your medical needs today. It was a pleasure caring for you. Today you were seen in the emergency department for sore throat, runny nose and fever. 1. Please order picker your nasal spray and take as directed. You can also use [id number] cough and cold allergy medication for your runny nose and sore throat. If your symptoms should worsen, new symptoms develop or any of the signs and symptoms we discussed should arise please return to the emergency room or call 911 (if needed). 2. The clinic should contact you with your coronavirus results. 3. Alternate Tylenol and ibuprofen for fever and pain control. Small frequent sips of fluids to prevent dehydration. 4. Follow-up with your primary care provider Maura Lozano as we discussed. Sepsis Event Note (ED) - Focused Exam Vital Signs: Vital Signs Temp Pulse Resp BP Pulse Ox 01/13/20 20:49 97.8 F 102 H 18 113/82 97 - My Orders Last 24 Hours: My Active Orders 01/13/20 20:59 CULTURE STREP A CONFIRMATION [RM] Stat STREP SCRN A RAPID W CULT CONF [RM] Stat 01/13/20 21:22 Codeine/Promethazine [Phenergan with Codeine] 10 ml PO NOW STA - Assessment/Plan Last 24 Hours: My Active Orders 01/13/20 20:59 CULTURE STREP A CONFIRMATION [RM] Stat STREP SCRN A RAPID W CULT CONF [RM] Stat 01/13/20 21:22 Codeine/Promethazine [Phenergan with Codeine] 10 ml PO NOW STA
[2020-01-13] MEDS ORDERED: Montelukast 10 MG Tab PO ONE (21:20)
[2020-01-13] MEDS ORDERED: Codeine/Promethazine 10-6.25 MG/5 ML Syrup 5 ML UD Cup PO STA (21:22)
[2020-01-13 21:33] VITALS: BP 106/68; PULSE 97
== END 2020-01-13 21:36 | disposition home or self-care (01) ==
LOC: MW.ED 20:36
DX: B34.9 Viral infection, unspecified (principal); I10 Essential (primary) hypertension; F32.9 Major depressive disorder, single episode, unspecified; E66.9 Obesity, unspecified; F41.9 Anxiety disorder, unspecified; Z79.899 Other long term (current) drug therapy
CPT/HCPCS: 87081; 87880; 99283; A9270; 99282

== ENCOUNTER 2020-01-18 15:08 | Emergency (ER) | payer OTHER ==
[2020-01-18 15:28] VITALS: BP 130/80; PULSE 94
--- NOTE | 2020-01-18 15:40 | EDM.PDOC ---
ED HPI GENERAL MEDICAL PROBLEM - General Chief Complaint: Respiratory Problem Stated Complaint: COUGH Time Seen by Provider: 01/18/20 15:12 Source of Information: Reports: Patient History Limitations: Reports: No Limitations - History of Present Illness INITIAL COMMENTS - FREE TEXT/NARRATIVE: 59M presents for cough and rhinorrhea. Was seen earlier this week and diagnosed with sinus infection, is on Augmentin currently. Notes cough worsening at night. No associated SOB or chest pain. Subjective fevers. Negative COVID test on 01/13/2020. nose Pain Score (Numeric/FACES): 6 - Related Data Allergies Allergy/AdvReac Type Severity Reaction Status Date / Time cat dander Allergy Other Verified 01/18/20 15:19 Home Meds: Home Meds Celecoxib 200 mg PO DAILY 01/13/20 [History] LORazepam [Lorazepam] 1 mg PO ASDIRECTED PRN 01/13/20 [History] Losartan Potassium 50 mg PO DAILY 01/13/20 [History] Omeprazole 40 mg PO DAILY 01/13/20 [History] RX: buPROPion HCL [Bupropion Xl] 300 mg PO DAILY 01/13/20 [History] Amoxicillin/Clavulanate K [Augmentin 875-125 MG] 1 tab PO BID 01/18/20 [History] Fluticasone Propionate [Flonase] 16 gm NADER DAILY 28 Days #1 bottle 01/18/20 [Rx] Past Medical History HEENT History: Reports: Other (See Below) Other HEENT History: wears glasses Cardiovascular History: Reports: Hypertension Respiratory History: Reports: Sleep Apnea Other Respiratory History: uses CPAP Gastrointestinal History: Reports: None Genitourinary History: Reports: BPH Musculoskeletal History: Reports: Back Pain, Chronic, Fracture Other Musculoskeletal History: fx to rt arm Neurological History: Reports: None Psychiatric History: Reports: Anxiety, Depression Endocrine/Metabolic History: Reports: Obesity/BMI 30+ Hematologic History: Reports: None Immunologic History: Reports: None Oncologic (Cancer) History: Reports: None Dermatologic History: Reports: None - Infectious Disease History Infectious Disease History: Reports: Chicken Pox - Past Surgical History Head Surgeries/Procedures: Reports: None HEENT Surgical History: Reports: Naso-Sinus Surgery, Tonsillectomy Cardiovascular Surgical History: Reports: None Respiratory Surgical History: Reports: None GI Surgical History: Reports: Hernia, Inguinal Male Surgical History: Reports: None, TURP-Transurethral Resection of Prostate Endocrine Surgical History: Reports: None Neurological Surgical History: Reports: None Musculoskeletal Surgical History: Reports: Other (See Below) Other Musculoskeletal Surgeries/Procedures:: surgical repair of fx elbow and wrist Oncologic Surgical History: Reports: None Dermatological Surgical History: Reports: None Social & Family History - Family History Family Medical History: Noncontributory - Tobacco Use Smoking Status *Q: Former Smoker Used Tobacco, but Quit: Yes Month/Year Tobacco Last Used: 8-9 years ago - Caffeine Use Caffeine Use: Reports: None - Recreational Drug Use Recreational Drug Use: No ED ROS GENERAL - Review of Systems Review Of Systems: Comprehensive ROS is negative, except as noted in HPI. ED EXAM, GENERAL - Physical Exam Exam: See Below Exam Limited By: No Limitations General Appearance: Alert, WD/WN, No Apparent Distress Ears: Normal External Exam Nose: Normal Inspection Throat/Mouth: Normal Inspection, Normal Oropharynx, No Airway Compromise, Other (post-nasal drip) Head: Atraumatic, Normocephalic Neck: Normal Inspection Respiratory/Chest: No Respiratory Distress, Lungs Clear, Normal Breath Sounds, No Accessory Muscle Use Cardiovascular: Normal Peripheral Pulses, Regular Rate, Rhythm Extremities: Normal Inspection Neurological: Alert, Oriented Psychiatric: Normal Affect, Normal Mood Skin Exam: Warm, Dry Course - Vital Signs Last Recorded V/S: Last Vital Signs Temp 96.7 F L 01/18/20 15:22 Pulse 94 01/18/20 15:22 Resp 18 01/18/20 15:22 BP 130/80 01/18/20 15:22 Pulse Ox 94 L 01/18/20 15:22 - Orders/Labs/Meds Labs: Laboratory Tests 01/18/20 Range/Units 15:50 COVID-19 (PRAVIN) NEGATIVE (NEGATIVE) - Re-Assessments/Exams Free Text/Narrative Re-Assessment/Exam: 01/18/20 15:39 Will get CXR and COVID swab, reassess and dispo. Vitals are unremarkable. 01/18/20 16:27 CXR and COVID testing negative; will d/c with flonase for post-nasal drip and recommend PMD f/u Departure - Departure Time of Disposition: 16:27 Disposition: Home, Self-Care 01 Condition: Good Clinical Impression: Bronchitis - Discharge Information Prescriptions: Fluticasone Propionate [Flonase] 16 gm NADER DAILY 28 Days #1 bottle Instructions: Acute Bronchitis, Adult, [id number] Referrals: Lilly Lozano NP [Primary Care Provider] - Forms: ED Department Discharge Additional Instructions: The following information is given to patients seen in the emergency department who are being discharged to home. This information is to outline your options for follow-up care. We provide all patients seen in our emergency department with a follow-up referral. The need for follow-up, as well as the timing and circumstances, are variable depending upon the specifics of your emergency department visit. If you don't have a primary care physician on staff, we will provide you with a referral. We always advise you to contact your personal physician following an emergency department visit to inform them of the circumstance of the visit and for follow-up with them and/or the need for any referrals to a consulting speci alist. The emergency department will also refer you to a specialist when appropriate. This referral assures that you have the opportunity for follow-up care with a specialist. All of these measure are taken in an effort to provide you with optimal care, which includes your follow-up. Under all circumstances we always encourage you to contact your private physician who remains a resource for coordinating your care. When calling for follow-up care, please make the office aware that this follow-up is from your recent emergency room visit. If for any reason you are refused follow-up, please contact the [facility] Emergency Department at and asked to speak to the emergency department charge nurse. Sepsis Event Note (ED) - Evaluation Sepsis Screening Result: Possible Sepsis Risk - Focused Exam Vital Signs: Vital Signs Temp Pulse Resp BP Pulse Ox 01/18/20 15:22 96.7 F L 94 18 130/80 94 L
--- NOTE | 2020-01-18 16:12 | CR ---
Indication: Cough. Technique: AP portable view of the chest. Comparison: None Findings: The heart is normal in size. The lungs are clear. No infiltrate, pleural effusion, or pneumothorax is identified. Impression: No acute cardiopulmonary process Dictated by Mary Ellen Parada MD @ Jan 18 2020 4:10PM Signed by Dr. Mary Ellen Parada @ Jan 18 2020 4:11PM
== END 2020-01-18 16:36 | disposition home or self-care (01) ==
LOC: MW.ED 15:08
DX: J40 Bronchitis, not specified as acute or chronic (principal); I10 Essential (primary) hypertension; F41.9 Anxiety disorder, unspecified; F32.9 Major depressive disorder, single episode, unspecified; Z87.891 Personal history of nicotine dependence; E66.9 Obesity, unspecified; Z68.39 Body mass index [BMI] 39.0-39.9, adult; Z20.828 Contact with and (suspected) exposure to other viral communicable diseases; Z91.09 Other allergy status, other than to drugs and biological substances; Z79.899 Other long term (current) drug therapy
CPT/HCPCS: 71045; 71045-26; 99282; 99283-25; U0002

== ENCOUNTER 2020-07-28 07:39 | Observation (INO) | payer OTHER ==
[~2020-07-28 07:39] MED LIST changes: +Acetaminophen 1,000 MG in Premix Bag 1 BAG IV ONE; +Lactated Ringers 1,000 ML IV SCH; -Sodium Chloride 0.9% 10 ML SDV IV PRN; -Sodium Chloride 0.9% 10 ML Syringe FLUSH PRN; -Sodium Chloride 0.9% 2.5 ML Syringe FLUSH PRN; +ceFAZolin 2 GM in Premix Bag 1 BAG IV ONE
[2020-07-28] MEDS: Pregabalin 75 MG Cap PO SCH (07:55)
--- NOTE | 2020-07-28 08:30 | PCM.PREANE ---
Preanesthetic Assessment - Anesthesia/Transfusion/Family Hx Anesthesia History: Prior Anesthesia Without Reaction Family History of Anesthesia Reaction: No Transfusion History: No Prior Transfusion(s) - Review of Systems General: No Symptoms Pulmonary: Other (galindo has cpap) Cardiovascular: No Symptoms Gastrointestinal: No Symptoms Neurological: No Symptoms Other: Reports: None - Physical Assessment Height: 6 ft Weight: 139.253 kg ASA Class: 2 Mental Status: Alert & Oriented x3 Airway Class: Mallampati = 3 Dentition: Reports: Normal Dentition ROM/Head Extension: Full Lungs: Clear to Auscultation, Normal Respiratory Effort Cardiovascular: Regular Rate, Regular Rhythm - Allergies Allergies/Adverse Reactions: Allergies Allergy/AdvReac Type Severity Reaction Status Date / Time No Known Allergies Allergy Verified 07/28/20 08:27 - Blood Blood Available: No - Anesthesia Plan Pre-Op Medication Ordered: None - Acknowledgements Anesthesia Type Planned: General Anesthesia Pt an Appropriate Candidate for the Planned Anesthesia: Yes Alternatives and Risks of Anesthesia Discussed w Pt/Guardian: Yes Pt/Guardian Understands and Agrees with Anesthesia Plan: Yes Additional Comments: pmh: anxiety, galindo, htn, bph PLAN: ga/lma PreAnesthesia Questionnaire HEENT History: Reports: Other (See Below) Other HEENT History: wears glasses Cardiovascular History: Reports: Hypertension Respiratory History: Reports: Sleep Apnea Other Respiratory History: uses CPAP Gastrointestinal History: Reports: Colon Polyp Genitourinary History: Reports: BPH Musculoskeletal History: Reports: Arthritis, Fracture Other Musculoskeletal History: fx to rt arm Neurological History: Reports: None Psychiatric History: Reports: Anxiety, Depression Endocrine/Metabolic History: Reports: Obesity/BMI 30+ Hematologic History: Reports: None Immunologic History: Reports: None Oncologic (Cancer) History: Reports: None Dermatologic History: Reports: None - Infectious Disease History Infectious Disease History: Reports: Chicken Pox - Past Surgical History Head Surgeries/Procedures: Reports: None HEENT Surgical History: Reports: Naso-Sinus Surgery, Tonsillectomy Cardiovascular Surgical History: Reports: None Respiratory Surgical History: Reports: None GI Surgical History: Reports: Colonoscopy, Hernia, Inguinal Male Surgical History: Reports: TURP-Transurethral Resection of Prostate Endocrine Surgical History: Reports: None Neurological Surgical History: Reports: None Musculoskeletal Surgical History: Reports: Other (See Below) Other Musculoskeletal Surgeries/Procedures:: surgical repair of fx elbow and wrist Oncologic Surgical History: Reports: None Dermatological Surgical History: Reports: None - SUBSTANCE USE Tobacco Use Status *Q: Former Tobacco User Tobacco Use Within Last Twelve Months: No - HOME MEDS Home Medications: Home Meds LORazepam [Lorazepam] 0.5 - 1 tab PO ASDIRECTED PRN 01/13/20 [History] Losartan Potassium 50 mg PO DAILY 01/13/20 [History] Azelastine/Fluticasone [Azelastin-Flutic 137-50Mcg Spr] 1 spray NASBOTH BID 07/06/20 [History] Celecoxib 200 mg PO BID 07/06/20 [History] Finasteride 5 mg PO DAILY 07/06/20 [History] buPROPion HCL [Wellbutrin Xl] 150 mg PO DAILY 07/06/20 [History] - CURRENT (IN HOUSE) MEDS Current Meds: Current Medications Lactated Ringer's (Ringers, Lactated) 1,000 mls @ 125 mls/hr IV ASDIRECTED [facility] Last Admin: 07/28/20 08:15 Dose: 125 mls/hr Documented by: Pregabalin (Lyrica) 150 mg PO DAILY [facility] Last Admin: 07/28/20 07:55 Dose: 150 mg Documented by: Discontinued Medications Cefazolin Sodium/Dextrose 2 gm (/ Premix) 50 mls @ 100 mls/hr IV ONETIME ONE Stop: 07/27/20 09:20 Acetaminophen 1,000 mg/ Premix 100 mls @ 400 mls/hr IV NOW ONE Stop: 07/27/20 09:07 Last Admin: 07/28/20 08:20 Dose: 400 mls/hr Documented by: Acetaminophen (Ofirmev 1000 Mg/100 Ml) Confirm Administered Dose 100 mls @ as directed .ROUTE .STK-MED ONE Stop: 07/28/20 07:33 Cefazolin Sodium/Dextrose 2 gm (/ Premix) 50 mls @ 100 mls/hr IV ONETIME ONE Stop: 07/07/20 12:40 Acetaminophen 1,000 mg/ Premix 100 mls @ 400 mls/hr IV NOW ONE Stop: 07/07/20 12:25
[2020-07-28] MEDS ORDERED: Propofol 200 MG/20 ML SDV ONE (08:43)
[2020-07-28] MEDS ORDERED: Midazolam 1 MG/ML 2 ML SDV ONE (08:43)
[2020-07-28] MEDS ORDERED: fentaNYL 250 MCG/5 ML SDV ONE (08:44)
[2020-07-28] MEDS ORDERED: ceFAZolin 1 GM Vial ONE (08:47)
[2020-07-28] MEDS ORDERED: Rocuronium Bromide 50 MG/5 ML Syringe ONE (08:47)
[2020-07-28] MEDS ORDERED: Ondansetron 4 MG/2 ML SDV ONE (08:47)
[2020-07-28] MEDS ORDERED: Dexamethasone 4 MG/ML 5 ML MDV ONE (08:47)
[2020-07-28] MEDS ORDERED: Sodium Chloride 0.9% 20 ML ONE (08:47)
[2020-07-28] MEDS ORDERED: Bupivacaine 0.5% 30 ML SDV ONE (09:04)
[2020-07-28] MEDS ORDERED: Bupivacaine 25%/EPINEPHrine/PF 30 ML ONE (09:05)
[2020-07-28] MEDS ORDERED: Octyl 2-Cyanoacrylate 1 Tube ONE ×2 (09:05→11:36)
[2020-07-28] MEDS ORDERED: Phenylephrine 1% 10 MG/ML SDV ONE (10:36)
[2020-07-28] MEDS ORDERED: Glycopyrrolate 0.2 MG/ML SDV ONE (11:27)
[2020-07-28] MEDS ORDERED: Ketorolac 30 MG/ML SDV ONE (11:29)
--- NOTE | 2020-07-28 12:01 | PCM.OPNOTE ---
- General Post-Op/Procedure Note Date of Surgery/Procedure: 07/28/20 Operative Procedure(s): Laparoscopic recurrent left inguinal hernia. Laparoscopic right inguinal hernia Findings: Recurrent left direct inguinal hernia Large right cord lipoma and indirect inguinal hernia. Dictation number [id number] Pre Op Diagnosis: Recurrent left inguinal hernia. Right inguinal hernia Post-Op Diagnosis: Recurrent left direct inguinal hernia. Large right cord lipoma and indirect inguinal hernia. Anesthesia Technique: General ET Tube Primary Surgeon: Leighton Lay Pathology: none Complications: None Condition: Good
--- NOTE | 2020-07-28 12:49 | PCM.POSTAN ---
POST ANESTHESIA ASSESSMENT - MENTAL STATUS Mental Status: Alert, Oriented - VITAL SIGNS Vital Signs: Last Vital Signs Temp 100.6 F 07/28/20 11:58 Pulse 74 07/28/20 12:47 Resp 11 L 07/28/20 12:47 BP 96/50 L 07/28/20 12:47 Pulse Ox 93 L 07/28/20 12:47 - RESPIRATORY Respiratory Status: Respiratory Rate WNL, Airway Patent, O2 Saturation Stable - CARDIOVASCULAR CV Status: Pulse Rate WNL, Blood Pressure Stable - GASTROINTESTINAL GI Status: No Symptoms - POST OP HYDRATION Hydration Status: Adequate & Stable
--- NOTE | 2020-07-28 12:50 | PCM48HPAN ---
Post Anesthesia Note - EVALUATION WITHIN 48HRS OF ANESTHETIC Vital Signs in Normal Range: Yes Patient Participated in Evaluation: Yes Respiratory Function Stable: Yes Airway Patent: Yes Cardiovascular Function Stable: Yes Hydration Status Stable: Yes Pain Control Satisfactory: Yes Nausea and Vomiting Control Satisfactory: Yes Mental Status Recovered: Yes Vital Signs: Last Vital Signs Temp 100.6 F 07/28/20 11:58 Pulse 74 07/28/20 12:47 Resp 11 L 07/28/20 12:47 BP 96/50 L 07/28/20 12:47 Pulse Ox 93 L 07/28/20 12:47
[2020-07-28] MEDS ORDERED: Acetaminophen/oxyCODONE 325-5 MG Tab PO ONE ×2 (13:54→14:00)
[2020-07-28] MEDS ORDERED: Acetaminophen/HYDROcodone 325-5 MG Tab PO PRN (16:08)
[2020-07-28] MEDS ORDERED: HYDROmorphone 2 MG/ML Syringe IVPUSH PRN (16:08)
[2020-07-28] MEDS: Celecoxib 100 MG Cap PO SCH (21:29)
--- NOTE | 2020-07-28 21:35 | OR ---
SURGEON: KESHAV ROMERO MD DATE OF PROCEDURE: 07/28/2020 PREOPERATIVE DIAGNOSES: 1. Recurrent left inguinal hernia. 2. Right inguinal hernia. POSTOPERATIVE DIAGNOSES: 1. Recurrent direct left inguinal hernia. 2. Large right cord lipoma and indirect inguinal hernia. PROCEDURE PERFORMED: Laparoscopic bilateral repair of inguinal hernias. PRIMARY SURGEON: Keshav Romero MD. ANESTHESIA: General with ET tube. ESTIMATED BLOOD LOSS: 5 mL. COMPLICATIONS: None. SPECIMENS: None. REASON FOR PROCEDURE: The patient is a pleasant 59-year-old gentleman who has had recurrent left inguinal hernia along with a right inguinal hernia. I did go over with the patient risks, goals, alternatives of procedure with risks including, but not limited to, bleeding, infection, mesh infection, chronic pain, urinary retention, need to convert to open, recurrent injury to spermatic cord and testicle, chronic pain, entrapped nerve. The patient understands and wished to proceed. OPERATIVE NARRATIVE: The patient was brought back to the OR. He was prepped and draped in usual sterile fashion. SCDs were placed. Preoperative antibiotics were given and Espino catheter was placed and anesthesia was provided by the Anesthesia team. After time-out was performed, infraumbilical incision was made. This was carried down to his fascia and the anterior rectus sheath. A small incision was made in the anterior rectus sheath. The underlying rectus muscles were atraumatically to the posterior rectus sheath. Now, a balloon dissecting system was placed into the pubic tubercle and inflated under direct visualization. The balloon dissecting system was removed and a trocar was placed. Now, insufflation was began and then the pre-pneumoperitoneum was established. Now, 2 more 5-mm trocars were placed in his midline. First, our attention was brought to his left side. His Adrian's ligament was exposed. The patient did have what appeared to be more of a medial direct recurrence of his hernia. The hernia sac was gently dissected. It was slightly scarred in, but with some gentle traction, the hernia was reduced. Now, the lateral wall was dissected off and the right and left inguinal cords were inspected. Did not appear to be any indirect inguinal hernia. Now, our attention was brought to the right side. Again, Adrian's ligament was exposed. Now cleared up to the lateral abdominal wall. Now, the spermatic cord was inspected. The patient did have what appeared to be a very large cord lipoma, this was reduced. This cord lipoma was fairly large. The patient had a small indirect inguinal hernia. This was also reduced. The patient did not appear to have a direct hernia defect on the side. Now left and right inguinal mesh were placed. I did use a large Bard 3DMax MID mesh. Both these meshes were placed and laid in good positioning. They laid nice underneath the peritoneal reflection. On the left side, the direct inguinal hernia sac was placed above the mesh. On the right, the very large cord lipoma was also placed above the mesh and the mesh was again placed underneath the peritoneal reflection. The mesh laid nice and flat in good location. I did secure the mesh just above the periosteum of the Adrian's ligament with absorbable tack. I also did 1 medially making sure not putting in the vasculature such as the epigastric or psoas muscle to avoid any vascular or neurological nerve entrapment. Now the pre-pneumoperitoneum was released. Mesh was collapsed. Mesh was now reinsufflated. Nothing seemed to go underneath the mesh. The mesh was again in good location one more time with good hemostasis. All the hernia defects were covered with mesh and the mesh was underneath the peritoneal reflection. Now, the preperitoneum was again released. Under direct visualization, the mesh again was seen to be in good location. Now, the final trocar was removed along with the umbilical trocar. The anterior rectus fascia was closed with 0 Vicryl [id number] suture. All the trocar sites were again injected with local. Umbilicus was closed with 3-0 Vicryl and 4-0 Monocryl and Dermabond. Two 5-mm trocars with just 4- 0 Monocryl and Dermabond. At the end of the case, sponge and needle counts were correct. Both testicles in the scrotum. The patient was transferred to recovery room in stable condition. ETHEL / TERRIE /[id number]
--- NOTE | 2020-07-29 08:02 | PCM48HPAN ---
Post Anesthesia Note - EVALUATION WITHIN 48HRS OF ANESTHETIC Vital Signs in Normal Range: Yes Patient Participated in Evaluation: Yes Respiratory Function Stable: Yes Airway Patent: Yes Cardiovascular Function Stable: Yes Hydration Status Stable: Yes Pain Control Satisfactory: Yes Nausea and Vomiting Control Satisfactory: Yes Mental Status Recovered: Yes Vital Signs: Last Vital Signs Temp 97.5 F 07/29/20 05:00 Pulse 80 07/29/20 05:00 Resp 16 07/29/20 05:00 BP 115/62 07/29/20 05:00 Pulse Ox 92 L 07/29/20 05:00 - COMMENTS/OBSERVATIONS Free Text/Narrative:: Off O2 and sating 94% on room air
[2020-07-29 08:38] VITALS: BP 116/62
[2020-07-29] MEDS: Celecoxib 100 MG Cap PO SCH (08:38)
[2020-07-29] MEDS: Pregabalin 75 MG Cap PO SCH ×2 (08:38)
[2020-07-29 08:47] VITALS: PULSE 81
[2020-07-29] MEDS ORDERED: Losartan 50 MG Tab PO SCH (09:00)
[2020-07-29] MEDS ORDERED: Finasteride 5 MG Tab PO SCH (09:00)
[2020-07-29] MEDS ORDERED: buPROPion 150 MG Tab.ER PO SCH (09:00)
== END 2020-07-29 09:05 | disposition home or self-care (01) ==
LOC: MW.SDS 07:39 → MW.MS 16:16
PROVIDERS: ADMIT Surgery; ATTEND Surgery
DX: K40.91 Unilateral inguinal hernia, without obstruction or gangrene, recurrent (principal); K40.90 Unilateral inguinal hernia, without obstruction or gangrene, not specified as recurrent; D17.6 Benign lipomatous neoplasm of spermatic cord; I10 Essential (primary) hypertension; G47.33 Obstructive sleep apnea (adult) (pediatric); E66.9 Obesity, unspecified; Z79.899 Other long term (current) drug therapy; Z98.890 Other specified postprocedural states; Z87.891 Personal history of nicotine dependence; Z68.39 Body mass index [BMI] 39.0-39.9, adult
CPT/HCPCS: 49650; 49651; A9270; G0378; J0131; J0690; J1100; J1885; J2250; J2370; J2405; J2704; J3010; J3490; J7120; 00830

== ENCOUNTER 2021-05-16 18:01 | Emergency (ER) | payer OTHER ==
[2021-05-16] MEDS ORDERED: Diphtheria,Pertussis(Acell),Tetanus Vaccine 0.5 ML Syringe IM ONE (19:12)
[2021-05-16] MEDS ORDERED: Lidocaine 1% PF 2 ML SDV INJECT ONE (19:13)
[2021-05-16 19:40] VITALS: BP 168/80; PULSE 84
[2021-05-16] MEDS ORDERED: Octyl 2-Cyanoacrylate 1 Tube TOP ONE (20:16)
--- NOTE | 2021-05-16 20:18 | EDM.PDOC ---
ED HPI GENERAL MEDICAL PROBLEM - General Chief Complaint: Laceration Stated Complaint: LT FOOT LACERATION Time Seen by Provider: 05/16/21 19:01 Source of Information: Reports: Patient History Limitations: Reports: No Limitations - History of Present Illness INITIAL COMMENTS - FREE TEXT/NARRATIVE: HISTORY AND PHYSICAL: History of present illness: Patient is a 60-year-old male who presents to the emergency room with complaints of left second toe laceration. He states he was eating when his steak knife fell resulting in the laceration. He denies any difficulty with movement, weightbearing. Denies any other extremity involvement. Unsure of his last tetanus update. Offers no systemic complaints.. Review of systems: As per history of present illness and below otherwise all systems reviewed and negative. Past medical history: As per history of present illness and as reviewed below otherwise noncontributory. Surgical history: As per history of present illness and as reviewed below otherwise noncontributory. Social history: See social history for further information Family history: As per history of present illness and as reviewed below otherwise noncontri butory. Physical exam: General: Well developed and well nourished 60-year-old male. Alert and orientated x 3. Nontoxic in appearance and in no acute distress. Vital signs are stable and have been reviewed by me. Nursing notes were reviewed. HEENT: Atraumatic, normocephalic, pupils equal and reactive bilaterally, negative for conjunctival pallor or scleral icterus, mucous membranes moist, trachea midline. No drooling or trismus noted. No meningeal signs. No hot potato voice noted. Lungs: Clear to auscultation bilaterally. Normal work of breathing, no accessory muscles used. Heart: S1S2, regular rate and rhythm Skin: 1 cm U-shaped laceration to the top of the left second toe, does not involve the nailbed. Remaining skin is intact, warm, dry. No lesions or rashes noted. Hematologic: No petechiae or purpra. Mucosa appropriate color and normal nail bed color and refill. Extremities: See skin for details, cap refill less than 2 seconds. Strong pedal and pretibial pulse, moves all extremities per self without difficulty or deficits, negative for cords or calf pain. Neurovascular unremarkable. Neuro: Awake, alert, oriented. Cranial nerves II through XII unremarkable. Cerebellum unremarkable. Motor and sensory unremarkable throughout. Exam nonfocal. Psychiatric: Mood and affect are appropriate. Normal thought process. Answering questions appropriately. Please note that the patient was seen and evaluated during the 2019 SARS-CoV-2 novel coronavirus pandemic period. Community viral transmission is ongoing at time of this encounter and the emergency department is operating under pandemic response procedures. Medical Decision Making: Area was thoroughly cleansed with chlorhexidine and wound wash. Laceration is superficial and closed with Dermabond. Tetanus has been updated. Patient declines wanting an x-ray. I do not feel is warranted at this time. I have talked with the patient about today's findings, in addition to providing specific details for plan of care. Reassessment at the time of disposition demonstrates that the patient is in no acute distress. The patient is stable for discharge, counseling was provided and we discussed in great detail signs and symptoms that would prompt them to return to the Emergency Department. Medication, follow up and supportive care measures were reviewed and discussed. Voices understanding and is agreeable to plan of care. Denies any further questions or concerns at this time. Diagnostics: None Therapeutics: Dermabond, Tdap Prescription: None Impression: Laceration, simple Plan: 1. You were evaluated today on an emergent basis. Your laceration was repaired with Dermabond glue. This will fall off on its own, please do not peel or pick at this. Continue to monitor for signs of infection. 2. You can alternate Tylenol and ibuprofen as needed for pain and fever management. 3. We encourage you to follow up with your primary care provide for re- evaluation and further care/management. 4. If your symptoms should worsen, new symptoms develop or any of the signs and symptoms we discussed should arise please return to the emergency room or call 911 (if needed). Definitive disposition and diagnosis as appropriate pending reevaluation and review of above. Left Foot Pain Score (Numeric/FACES): 6 - Related Data Allergies Allergy/AdvReac Type Severity Reaction Status Date / Time No Known Allergies Allergy Verified 05/16/21 19:40 Home Meds: Home Meds LORazepam [Lorazepam] 0.5 - 1 tab PO ASDIRECTED PRN 01/13/20 [History] Losartan Potassium 50 mg PO DAILY 01/13/20 [History] Azelastine/Fluticasone [Azelastin-Flutic 137-50Mcg Spr] 1 spray NASBOTH BID 07/06/20 [History] Celecoxib 200 mg PO BID 07/06/20 [History] Finasteride 5 mg PO DAILY 07/06/20 [History] buPROPion HCL [Wellbutrin Xl] 150 mg PO DAILY 07/06/20 [History] Acetaminophen/oxyCODONE [Percocet 325-5 MG] 1 - 2 each PO Q6HR #20 tab 07/28/20 [Rx] Past Medical History HEENT History: Reports: Other (See Below) Other HEENT History: wears glasses Cardiovascular History: Reports: Hypertension Respiratory History: Reports: Sleep Apnea Other Respiratory History: uses CPAP Gastrointestinal History: Reports: Colon Polyp Genitourinary History: Reports: BPH Musculoskeletal History: Reports: Arthritis, Fracture Other Musculoskeletal History: fx to rt arm Neurological History: Reports: None Psychiatric History: Reports: Anxiety, Depression Endocrine/Metabolic History: Reports: Obesity/BMI 30+ Hematologic History: Reports: None Immunologic History: Reports: None Oncologic (Cancer) History: Reports: None Dermatologic History: Reports: None - Infectious Disease History Infectious Disease History: Reports: Chicken Pox - Past Surgical History Head Surgeries/Procedures: Reports: None HEENT Surgical History: Reports: Naso-Sinus Surgery, Tonsillectomy Cardiovascular Surgical History: Reports: None Respiratory Surgical History: Reports: None GI Surgical History: Reports: Colonoscopy, Hernia, Inguinal Male Surgical History: Reports: TURP-Transurethral Resection of Prostate Endocrine Surgical History: Reports: None Neurological Surgical History: Reports: None Musculoskeletal Surgical History: Reports: Other (See Below) Other Musculoskeletal Surgeries/Procedures:: surgical repair of fx elbow and wrist Oncologic Surgical History: Reports: None Dermatological Surgical History: Reports: None Social & Family History - Family History Family Medical History: No Pertinent Family History - Tobacco Use Second Hand Smoke Exposure: No - Caffeine Use Caffeine Use: Reports: None - Recreational Drug Use Recreational Drug Use: No ED ROS GENERAL - Review of Systems Review Of Systems: Comprehensive ROS is negative, except as noted in HPI. ED EXAM, SKIN/RASH Exam: See Below (See dictation) ED SKIN PROCEDURES - Laceration/Wound Repair Left 2nd toe Appearance: Superficial, Clean Distal NVT: Neuro & Vascular Intact, No Tendon Injury Skin Prep: Chlorhexidine (Hibiciens), Saline Saline Irrigation (cc's): 250 Exploration/Debridement/Repair: Wound Explored, In a Bloodless Field, Explored to Base, No Foreign Material Found Closed with: Dermabond Lac/Wound length In cm: 1 Drain Placement: No Sterile Dressing Applied: None Tetanus Status Addressed: Yes Complications: No Course - Vital Signs Last Recorded V/S: Last Vital Signs Temp 97.7 F 05/16/21 19:38 Pulse 84 05/16/21 19:38 Resp 20 05/16/21 19:38 BP 168/80 H 05/16/21 19:38 Pulse Ox 96 05/16/21 19:38 - Orders/Labs/Meds Orders: Active Orders 24 hr Category Date Time Status Vaccine to be Administered/Admin Charge [RC] ASDIRECTED Care 05/16/21 19:13 Active Meds: Medications Discontinued Medications Generic Name Dose Route Start Last Admin Trade Name Freq PRN Reason Stop Dose Admin Diphtheria/Tetanus/Acell Pertussis 0.5 ml 05/16/21 19:12 Diphtheria,Pertussis(Acell),Tetanus Vaccine 0.5 Ml Syringe IM 05/16/21 19:13 .ONCE ONE Lidocaine HCl 4 ml 05/16/21 19:13 Lidocaine 1% Pf 2 Ml Sdv INJECT 05/16/21 19:14 ONETIME ONE Octyl Cyanoacrylate 1 applic 05/16/21 20:16 Octyl 2-Cyanoacrylate 1 Tube TOP 05/16/21 20:17 ONETIME ONE Departure - Departure Time of Disposition: 20:17 Disposition: Home, Self-Care 01 Clinical Impression: Simple laceration - Discharge Information Instructions: Laceration Care, Adult, [id number] Forms: ED Department Discharge Additional Instructions: The following information is given to patients seen in the emergency department who are being discharged to home. This information is to outline your options for follow-up care. We provide all patients seen in our emergency department with a follow-up referral. The need for follow-up, as well as the timing and circumstances, are variable depending upon the specifics of your emergency department visit. If you don't have a primary care physician on staff, we will provide you with a referral. We always advise you to contact your personal physician following an emergency department visit to inform them of the circumstance of the visit and for follow-up with them and/or the need for any referrals to a consulting specialist. The emergency department will also refer you to a specialist when appropriate. This referral assures that you have the opportunity for follow-up care with a specialist. All of these measure are taken in an effort to provide you with opti mal care, which includes your follow-up. Under all circumstances we always encourage you to contact your private physician who remains a resource for coordinating your care. When calling for follow-up care, please make the office aware that this follow-up is from your recent emergency room visit. If for any reason you are refused follow-up, please contact the [facility] Emergency [facility] at and asked to speak to the emergency department charge nurse. [facility] [address] [place] [address] [facility] [address] [place] [id number] Thank you for choosing the [facility] emergency department in [place] for your medical needs today. It was a pleasure caring for you. Today you were seen in the emergency department for laceration care. 1. You were evaluated today on an emergent basis. Your laceration was repaired with Dermabond glue. This will fall off on its own, please do not peel or pick at this. Continue to monitor for signs of infection. 2. You can alternate Tylenol and ibuprofen as needed for pain and fever management. 3. We encourage you to follow up with your primary care provide for re- evaluation and further care/management. 4. If your symptoms should worsen, new symptoms develop or any of the signs and symptoms we discussed should arise please return to the emergency room or call 911 (if needed). Sepsis Event Note (ED) - Evaluation Sepsis Screening Result: No Definite Risk - Focused Exam Vital Signs: Vital Signs Temp Pulse Resp BP Pulse Ox 05/16/21 19:38 97.7 F 84 20 168/80 H 96 - My Orders Last 24 Hours: My Active Orders 05/16/21 19:13 Vaccine to be Administered/Admin Charge [RC] ASDIRECTED - Assessment/Plan Last 24 Hours: My Active Orders 05/16/21 19:13 Vaccine to be Administered/Admin Charge [RC] ASDIRECTED
== END 2021-05-16 20:37 | disposition home or self-care (01) ==
LOC: MW.ED 18:01
DX: S91.115A Laceration without foreign body of left lesser toe(s) without damage to nail, initial encounter (principal); I10 Essential (primary) hypertension; Z79.899 Other long term (current) drug therapy; Z23 Encounter for immunization; W26.0XXA Contact with knife, initial encounter
CPT/HCPCS: 12001; 90471; 90715; 99282; A9270

== ENCOUNTER 2024-10-13 18:24 | Emergency (ER) | payer MEDICARE, OTHER ==
[2024-10-13] MEDS ORDERED: Sodium Chloride 0.9% 20 ML SDV IV PRN (18:47)
[2024-10-13] MEDS ORDERED: Sodium Chloride 0.9% 2.5 ML Syringe FLUSH PRN (18:47)
[2024-10-13] MEDS ORDERED: Sodium Chloride 0.9% 10 ML Syringe FLUSH PRN (18:47)
[2024-10-13 18:54] LABS: BASOPHILS ABSOLUTE AUTO 0.03 K/uL (0.00-0.20); BASOPHILS PERCENT AUTO 0.2 % (0.0-1.0); EOSINOPHILS ABSOLUTE AUTO 0.09 K/uL (0.00-0.45); EOSINOPHILS PERCENT AUTO 0.6 % (0.0-6.0); HEMATOCRIT 43.5 % (42.0-52.0); HEMOGLOBIN 15.5 g/dL (14.0-18.0); IMMATURE GRAN ABSOLUTE AUTO 0.04 K/uL (0.00-0.05); IMMATURE GRAN PERCENT AUTO 0.3 % (0.0-0.4); LYMPHOCYTES PERCENT AUTO 7.7 % (24.0-44.0); MEAN CORPUSCULAR HEMOGLOBIN 30.8 pg (28.0-32.0); MEAN CORPUSCULAR HGB CONC 35.6 g/dL (32.0-36.0); MEAN CORPUSCULAR VOLUME 86.3 fL (83.0-99.0); MONOCYTES ABSOLUTE AUTO 0.91 K/uL (0.00-0.80); MONOCYTES PERCENT AUTO 6.4 % (0.0-8.0); NEUTROPHILS ABSOLUTE AUTO 12.04 K/uL (1.80-7.70); NEUTROPHILS PERCENT AUTO 84.8 % (41.0-71.0); PLATELET COUNT,PLT 148 K/uL (150-400); RED BLOOD CELL COUNT 5.04 M/uL (4.52-5.90); WHITE BLOOD CELL COUNT,WBC 14.21 K/uL (3.9-11.3)
[2024-10-13 19:01] LABS: INR 1.02 (0.86-1.11); PTT,PARTIAL THROMBOPLSTIN TIME 32.1 SEC (23.9-30.7)
[2024-10-13 19:17] LABS: A/G RATIO 1.1 (0.9-1.6); ALBUMIN 3.5 g/dL (3.4-5.0); BILIRUBIN TOTAL 0.9 mg/dL (0.2-1.0); CARBON DIOXIDE,CO2 28.3 mmol/L (21.0-32.0); CREATININE 0.8 mg/dL (0.8-1.3); EST CRCL DRUG DOSING (CG) 101.04 mL/min; POTASSIUM,K 3.5 mmol/L (3.5-5.1); PROTEIN TOTAL,TP 6.6 g/dL (6.4-8.2)
[2024-10-13] MEDS: Aspirin 325 MG Tab PO ONE (19:23)
[2024-10-13] MEDS: Acetaminophen 325 MG Tab PO ONE (19:23)
[2024-10-13] MEDS: metroNIDAZOLE/Normal Saline 500 MG in Premix Bag 1 BAG IV ONE (20:48)
[2024-10-13 21:14] LABS: APPEARANCE,URINE CLEAR; BILIRUBIN,URINE NEGATIVE (NEGATIVE); COLOR,URINE YELLOW; GLUCOSE,URINE NEGATIVE (NEGATIVE); KETONES,URINE 15 mg/dL (NEGATIVE); LEUKOCYTE ESTERASE,URINE NEGATIVE (NEGATIVE); NITRITE,URINE NEGATIVE (NEGATIVE); OCCULT BLOOD,URINE NEGATIVE (NEGATIVE); PROTEIN,URINE NEGATIVE (NEGATIVE)
[2024-10-13 21:36] LABS: LACTIC ACID 1.2 mmol/L (0.4-2.0)
[2024-10-13] MEDS: Levofloxacin/Dextrose 5%-Water 500 MG in Premix Bag 1 BAG IV ONE (22:46)
[2024-10-13 23:51] VITALS: BP 140/84; PULSE 89
== END 2024-10-13 23:51 | disposition home or self-care (01) ==
LOC: MW.ED 18:24
DX: K80.20 Calculus of gallbladder without cholecystitis without obstruction (principal); D72.829 Elevated white blood cell count, unspecified; F41.9 Anxiety disorder, unspecified; R07.9 Chest pain, unspecified; I10 Essential (primary) hypertension; E66.9 Obesity, unspecified; Z68.41 Body mass index [BMI] 40.0-44.9, adult; Z79.899 Other long term (current) drug therapy
CPT/HCPCS: 36415; 71045; 74176; 76705; 80053; 81003; 83605; 83690; 83880; 84484; 85025; 85610; 85730; 87040; 93005; 96365; 96367; 99285; A9270; J1836; J1956; 93010; 99284

== ENCOUNTER 2024-10-14 13:36 | Inpatient (IN) | payer MEDICARE ==
[2024-10-14] MEDS ORDERED: Sodium Chloride 0.9% 2.5 ML Syringe FLUSH PRN (14:02)
[2024-10-14] MEDS ORDERED: diphenhydrAMINE 50 MG/ML SDV IVPUSH PRN (14:02)
[2024-10-14] MEDS ORDERED: Sodium Chloride 0.9% 10 ML Syringe FLUSH PRN (14:02)
[2024-10-14] MEDS ORDERED: Ondansetron 4 MG/2 ML SDV IVPUSH PRN (14:02)
[2024-10-14] MEDS ORDERED: Sodium Chloride 0.9% 20 ML SDV IV PRN (14:02)
[2024-10-14 14:41] LABS: HEMOGLOBIN A1C 5.6 %
[2024-10-14] MEDS: Acetaminophen/HYDROcodone 325-5 MG Tab PO PRN (14:48)
[2024-10-14] MEDS: Sodium Chloride 0.9% 1,000 ML IV SCH (14:48)
[2024-10-14] MEDS: Piperacillin/Tazobactam 4.5 GM in Sodium Chloride 0.9% 100 ML IV SCH (16:19)
[2024-10-14 17:13] LABS: HEMATOCRIT 41.7 % (42.0-52.0); HEMOGLOBIN 14.7 g/dL (14.0-18.0); MEAN CORPUSCULAR HEMOGLOBIN 30.5 pg (28.0-32.0); MEAN CORPUSCULAR HGB CONC 35.3 g/dL (32.0-36.0); MEAN CORPUSCULAR VOLUME 86.5 fL (83.0-99.0); MEAN PLATELET VOLUME 10.2 fL (9.4-12.4); PLATELET COUNT,PLT 127 K/uL (150-400); RED BLOOD CELL COUNT 4.82 M/uL (4.52-5.90); WHITE BLOOD CELL COUNT,WBC 15.33 K/uL (3.9-11.3)
[2024-10-14] MEDS: Scopalamine 1mg/3day Transdermal Patch TRDERM SCH (17:25)
[2024-10-14 17:40] LABS: A/G RATIO 0.9 (0.9-1.6); ALBUMIN 2.9 g/dL (3.4-5.0); BILIRUBIN TOTAL 1.4 mg/dL (0.2-1.0); CALCIUM 8.4 mg/dL (8.5-10.1); CARBON DIOXIDE,CO2 26.9 mmol/L (21.0-32.0); CREATININE 0.9 mg/dL (0.8-1.3); EST CRCL DRUG DOSING (CG) 89.81 mL/min; POTASSIUM,K 3.3 mmol/L (3.5-5.1)
[2024-10-14] MEDS: Lactated Ringers 1,000 ML IV SCH (18:25)
[2024-10-14] MEDS: LORazepam 1 MG Tab PO SCH (22:16)
[2024-10-14] MEDS: traZODone 50 MG Tab PO SCH (22:16)
[2024-10-14] MEDS: Tamsulosin 0.4 MG Cap.ER PO SCH (22:16)
[2024-10-14] MEDS: Trospium 20 MG Tab PO SCH (22:16)
[2024-10-15 06:26] LABS: HEMATOCRIT 41.8 % (42.0-52.0); HEMOGLOBIN 14.5 g/dL (14.0-18.0); MEAN CORPUSCULAR HEMOGLOBIN 30.7 pg (28.0-32.0); MEAN CORPUSCULAR HGB CONC 34.7 g/dL (32.0-36.0); MEAN CORPUSCULAR VOLUME 88.6 fL (83.0-99.0); MEAN PLATELET VOLUME 10.3 fL (9.4-12.4); PLATELET COUNT,PLT 114 K/uL (150-400); RED BLOOD CELL COUNT 4.72 M/uL (4.52-5.90); WHITE BLOOD CELL COUNT,WBC 12.77 K/uL (3.9-11.3)
[2024-10-15 06:40] LABS: A/G RATIO 0.8 (0.9-1.6); ALBUMIN 2.6 g/dL (3.4-5.0); BILIRUBIN TOTAL 1.3 mg/dL (0.2-1.0); CALCIUM 8.6 mg/dL (8.5-10.1); CARBON DIOXIDE,CO2 30.2 mmol/L (21.0-32.0); CREATININE 0.9 mg/dL (0.8-1.3); EST CRCL DRUG DOSING (CG) 89.81 mL/min; POTASSIUM,K 3.3 mmol/L (3.5-5.1); PROTEIN TOTAL,TP 5.9 g/dL (6.4-8.2)
[2024-10-15] MEDS: buPROPion 150 MG Tab.ER PO SCH (08:53)
[2024-10-15] MEDS: Potassium Chloride 10 MEQ in Premix Bag 1 BAG IV SCH (08:53)
[2024-10-15] MEDS: Citalopram 10 MG Tab PO SCH (08:53)
[2024-10-15] MEDS: Losartan 50 MG Tab PO SCH (08:54)
[2024-10-15] MEDS ORDERED: Rocuronium Bromide 50 MG/5 ML Syringe ONE ×4 (10:33→17:19)
[2024-10-15] MEDS ORDERED: dexmedeTOMIDine HCl 200 MCG/2 ML SDV ONE (10:33)
[2024-10-15] MEDS ORDERED: fentaNYL 250 MCG/5 ML SDV ONE (10:34)
[2024-10-15] MEDS ORDERED: Bupivacaine 0.5% 30 ML SDV ONE (10:34)
[2024-10-15] MEDS ORDERED: Propofol 200 MG/20 ML SDV ONE (10:34)
[2024-10-15] MEDS ORDERED: Ropivacaine 0.5% 5 MG/ML 30 ML SDV ONE (10:38)
[2024-10-15] MEDS: HYDROmorphone 2 MG/ML Syringe IVPUSH PRN (11:10)
[2024-10-15] MEDS ORDERED: Phenylephrine HCl In 0.9% NaCl 1 MG/10 ML Syringe IVPUSH PRN (12:57)
[2024-10-15] MEDS ORDERED: fentaNYL 50 MCG/ML SDV IVPUSH PRN (12:57)
[2024-10-15] MEDS ORDERED: Naloxone 0.4 MG/ML SDV IVPUSH PRN (12:57)
[2024-10-15] MEDS ORDERED: Morphine 2 MG/ML SYRINGE IVPUSH PRN (12:57)
[2024-10-15] MEDS ORDERED: Metoclopramide 10 MG/2 ML SDV IVPUSH PRN (12:57)
[2024-10-15] MEDS ORDERED: Albuterol 0.083% 2.5 MG/3 ML Neb Soln NEB PRN (12:57)
[2024-10-15] MEDS ORDERED: Ondansetron 4 MG/2 ML SDV IVPUSH PRN (12:57)
[2024-10-15] MEDS ORDERED: HYDROmorphone 1 MG/ML Syringe IVPUSH PRN (12:57)
[2024-10-15] MEDS ORDERED: Phenylephrine HCl In 0.9% NaCl 1 MG/10 ML Syringe ONE ×3 (13:03→16:37)
[2024-10-15] MEDS ORDERED: ePHEDrine 50 MG/ML SDV ONE (13:16)
[2024-10-15] MEDS ORDERED: ceFAZolin 1 GM Vial ONE (14:03)
[2024-10-15] MEDS ORDERED: propofoL 500 MG/50 ML 0 ML ONE (16:54)
[2024-10-15 17:07] LABS: A/G RATIO 0.8 (0.9-1.6); ALBUMIN 2.4 g/dL (3.4-5.0); BILIRUBIN TOTAL 0.9 mg/dL (0.2-1.0); CALCIUM 8.1 mg/dL (8.5-10.1); CARBON DIOXIDE,CO2 30.3 mmol/L (21.0-32.0); CREATININE 0.9 mg/dL (0.8-1.3); EST CRCL DRUG DOSING (CG) 89.81 mL/min; POTASSIUM,K 3.7 mmol/L (3.5-5.1); PROTEIN TOTAL,TP 5.5 g/dL (6.4-8.2)
[2024-10-15 17:09] LABS: HEMATOCRIT 38.3 % (42.0-52.0); MEAN CORPUSCULAR HEMOGLOBIN 30.2 pg (28.0-32.0); MEAN CORPUSCULAR HGB CONC 33.9 g/dL (32.0-36.0); MEAN CORPUSCULAR VOLUME 89.1 fL (83.0-99.0); MEAN PLATELET VOLUME 10.6 fL (9.4-12.4); PLATELET COUNT,PLT 122 K/uL (150-400); WHITE BLOOD CELL COUNT,WBC 12.85 K/uL (3.9-11.3)
[2024-10-15 17:10] LABS: LACTIC ACID 1.1 mmol/L (0.4-2.0)
[2024-10-15] MEDS ORDERED: propofoL 500 MG/50 ML 100 ML ONE (18:11)
[2024-10-15] MEDS: fentaNYL/Normal Saline 2,500 MCG in Premix Bag 1 BAG IV SCH (19:16)
[2024-10-15] MEDS: propofoL 1,000 MG/100 ML 100 ML IV SCH (19:24)
[2024-10-15] MEDS: Norepinephrine Bit/D5W Premix 250 ML IV SCH (21:10)
[2024-10-16 05:52] LABS: HEMATOCRIT 35.2 % (42.0-52.0); HEMOGLOBIN 12.3 g/dL (14.0-18.0); MEAN CORPUSCULAR HEMOGLOBIN 31.2 pg (28.0-32.0); MEAN CORPUSCULAR HGB CONC 34.9 g/dL (32.0-36.0); MEAN CORPUSCULAR VOLUME 89.3 fL (83.0-99.0); MEAN PLATELET VOLUME 10.5 fL (9.4-12.4); PLATELET COUNT,PLT 142 K/uL (150-400); RED BLOOD CELL COUNT 3.94 M/uL (4.52-5.90); WHITE BLOOD CELL COUNT,WBC 14.77 K/uL (3.9-11.3)
[2024-10-16 06:20] LABS: A/G RATIO 0.7 (0.9-1.6); ALBUMIN 2.2 g/dL (3.4-5.0); BILIRUBIN TOTAL 0.8 mg/dL (0.2-1.0); CALCIUM 7.9 mg/dL (8.5-10.1); CARBON DIOXIDE,CO2 27.4 mmol/L (21.0-32.0); CREATININE 1.4 mg/dL (0.8-1.3); EST CRCL DRUG DOSING (CG) 57.74 mL/min; POTASSIUM,K 3.5 mmol/L (3.5-5.1); PROTEIN TOTAL,TP 5.2 g/dL (6.4-8.2)
[2024-10-16] MEDS: Lactated Ringers 1,000 ML IV SCH (07:54)
[2024-10-16] MEDS: Cyclobenzaprine 10 MG Tab PO SCH (08:58)
[2024-10-16] MEDS: Heparin Sodium 5,000 Units/ML Vial SUBCUT SCH (09:02)
[2024-10-16 14:33] LABS: CARBON DIOXIDE,CO2 30.6 mmol/L (21.0-32.0); CREATININE 1.3 mg/dL (0.8-1.3); POTASSIUM,K 3.7 mmol/L (3.5-5.1)
[2024-10-16 14:34] LABS: CALCIUM 7.9 mg/dL (8.5-10.1); EST CRCL DRUG DOSING (CG) 62.18 mL/min
[2024-10-16] MEDS: Sennosides/Docusate Sodium 50-8.6 MG Tab PO SCH (17:35)
[2024-10-17 05:27] LABS: HEMATOCRIT 34.2 % (42.0-52.0); HEMOGLOBIN 11.8 g/dL (14.0-18.0); MEAN CORPUSCULAR HEMOGLOBIN 31.2 pg (28.0-32.0); MEAN CORPUSCULAR HGB CONC 34.5 g/dL (32.0-36.0); MEAN CORPUSCULAR VOLUME 90.5 fL (83.0-99.0); MEAN PLATELET VOLUME 9.5 fL (9.4-12.4); PLATELET COUNT,PLT 118 K/uL (150-400); RED BLOOD CELL COUNT 3.78 M/uL (4.52-5.90); WHITE BLOOD CELL COUNT,WBC 11.54 K/uL (3.9-11.3)
[2024-10-17 05:52] LABS: A/G RATIO 0.6 (0.9-1.6); ALBUMIN 2.1 g/dL (3.4-5.0); BILIRUBIN TOTAL 0.7 mg/dL (0.2-1.0); CALCIUM 8.2 mg/dL (8.5-10.1); CREATININE 0.9 mg/dL (0.8-1.3); EST CRCL DRUG DOSING (CG) 89.81 mL/min; POTASSIUM,K 3.7 mmol/L (3.5-5.1); PROTEIN TOTAL,TP 5.5 g/dL (6.4-8.2)
[2024-10-17] MEDS: Multivitamin Tab PO SCH (08:03)
[2024-10-17] MEDS ORDERED: Albuterol/Ipratropium 3.0-0.5 MG/3 ML Neb Soln NEB PRN (10:09)
[2024-10-17] MEDS ORDERED: Phenol 1.4% Oral Spray 177 ML Bottle MUCMEM PRN (10:11)
[2024-10-17] MEDS: Ciprofloxacin in D5W 400 MG in Premix Bag 1 BAG IV SCH (14:58)
[2024-10-17] MEDS: metroNIDAZOLE/Normal Saline 500 MG in Premix Bag 1 BAG IV SCH (14:59)
[2024-10-18 06:06] LABS: BASOPHILS ABSOLUTE AUTO 0.02 K/uL (0.00-0.20); BASOPHILS PERCENT AUTO 0.2 % (0.0-1.0); EOSINOPHILS ABSOLUTE AUTO 0.43 K/uL (0.00-0.45); EOSINOPHILS PERCENT AUTO 5.3 % (0.0-6.0); HEMOGLOBIN 10.6 g/dL (14.0-18.0); IMMATURE GRAN ABSOLUTE AUTO 0.03 K/uL (0.00-0.05); IMMATURE GRAN PERCENT AUTO 0.4 % (0.0-0.4); LYMPHOCYTES ABSOLUTE AUTO 0.89 K/uL (1.00-4.80); MEAN CORPUSCULAR HEMOGLOBIN 30.8 pg (28.0-32.0); MEAN CORPUSCULAR HGB CONC 34.2 g/dL (32.0-36.0); MEAN CORPUSCULAR VOLUME 90.1 fL (83.0-99.0); MEAN PLATELET VOLUME 9.5 fL (9.4-12.4); MONOCYTES ABSOLUTE AUTO 0.74 K/uL (0.00-0.80); MONOCYTES PERCENT AUTO 9.1 % (0.0-8.0); PLATELET COUNT,PLT 118 K/uL (150-400); RED BLOOD CELL COUNT 3.44 M/uL (4.52-5.90); WHITE BLOOD CELL COUNT,WBC 8.11 K/uL (3.9-11.3)
[2024-10-18] MEDS: Benzocaine/Cetylpyridinium/Menthol Lozenge MUCMEM PRN (06:17)
[2024-10-18 06:45] LABS: A/G RATIO 0.6 (0.9-1.6); BILIRUBIN TOTAL 0.5 mg/dL (0.2-1.0); CALCIUM 8.6 mg/dL (8.5-10.1); CARBON DIOXIDE,CO2 31.7 mmol/L (21.0-32.0); CREATININE 0.7 mg/dL (0.8-1.3); EST CRCL DRUG DOSING (CG) 115.48 mL/min; MAGNESIUM 1.8 mg/dL (1.8-2.4); POTASSIUM,K 3.3 mmol/L (3.5-5.1); PROTEIN TOTAL,TP 5.2 g/dL (6.4-8.2)
[2024-10-18] MEDS: metroNIDAZOLE 250 MG Tab PO SCH (13:36)
[2024-10-18 14:09] VITALS: PULSE 87
[2024-10-18 16:43] VITALS: BP 116/62
[2024-10-18] MEDS ORDERED: Ciprofloxacin 500 MG Tab PO SCH (18:00)
== END 2024-10-18 17:40 | disposition home or self-care (01) | DRG 853 ==
LOC: MW.MS 13:36 → OBSVTOIN 10-15 19:18 → MW.ICU 10-15 19:19 → MW.MS 10-17 12:08
PROVIDERS: ADMIT Surgery; ATTEND Surgery
PROC: 0FT40ZZ Resection of Gallbladder, Open Approach (ICD-10-PCS; principal; 2024-10-14)
PROC: 0FJ44ZZ Inspection of Gallbladder, Percutaneous Endoscopic Approach (ICD-10-PCS; 2024-10-14)
DX: A41.9 Sepsis, unspecified organism (principal); J96.01 Acute respiratory failure with hypoxia; K81.0 Acute cholecystitis; Z68.41 Body mass index [BMI] 40.0-44.9, adult; N17.9 Acute kidney failure, unspecified; I10 Essential (primary) hypertension; G47.30 Sleep apnea, unspecified; N40.0 Benign prostatic hyperplasia without lower urinary tract symptoms; M19.90 Unspecified osteoarthritis, unspecified site; D69.6 Thrombocytopenia, unspecified; F41.9 Anxiety disorder, unspecified; F32.A Depression, unspecified; E66.9 Obesity, unspecified; Z90.49 Acquired absence of other specified parts of digestive tract; Z98.890 Other specified postprocedural states; Z79.82 Long term (current) use of aspirin; Z87.891 Personal history of nicotine dependence; Z79.899 Other long term (current) drug therapy
CPT/HCPCS: 36415; 71045; 71045-26; 74018; 74018-26; 80048; 80053; 83036; 83605; 83735; 84100; 85025; 85027; 87070; 87075; 87205; 93005; 94003; 94660; 97162-GP; 97530-GP; A9270-GY; J0665; J0690; J0744; J1171; J1644; J1836; J2371; J2543; J2704; J2795; J3010; J3480; J3490; J7030; J7120